=== PATIENT | female | born 1955 | race Caucasian/White ===

== ENCOUNTER 2016-08-28 08:35 | Day surgery (SDC) | payer MEDICARE, MEDICAID ==
[~2016-08-28] VITALS: Ht 170.2 cm; Wt 101.0 kg
[~2016-08-28 08:35] MED LIST: 0.9% Sodium Chloride 1,000 ML IV SCH; AMLO10TA5 PO; BIOT1TAB16 PO; BUPR150T12 PO; DULO60CA42 PO; ESTR1PAT81 TRANSDERM; FENT-2 TRANSDERM; HYDR25TA4 PO; LEVO125T6 PO; MELA1TAB16 PO; MULT-1018 PO; OMEG1CAP56 PO; OMEP40CA36 PO; PROM25TA14 PO; RAMI10CA PO; RES15 PO; SULF500T PO; Sodium Chloride LOK Flush 10 mL Syringe IV PRN; TIZA4TAB4 PO; VIT1TABL83 PO; VITA400T9 PO; fentaNYL-PF 50 mCg/mL 2 mL Inj IVPUSH PRN; iron PO; potassium PO
[2016-08-28 09:22] VITALS: BP 168/96; PULSE 107; RESP 16; O2SAT 98
[2016-08-28] MEDS ORDERED: PANT40TA3 PO (09:29)
[2016-08-28] MEDS ORDERED: NITR1PAT64 TRANSDERM (09:29)
[2016-08-28] MEDS ORDERED: ATEN100T PO (09:29)
[2016-08-28] MEDS ORDERED: MORPHINE ER PO (09:29)
[2016-08-28] MEDS ORDERED: IMI100 PO (09:29)
[2016-08-28] MEDS ORDERED: ZOLP10TA5 PO (09:29)
[2016-08-28 10:26] VITALS: BP 146/78; PULSE 98; RESP 16; O2SAT 98
[2016-08-28 10:40] VITALS: BP 156/81; PULSE 101; RESP 14; O2SAT 96
--- NOTE | 2016-08-28 14:34 | ENDO ---
[address] [address] ENDOSCOPY PROCEDURE PATIENT: ROEL DIANE V : 1955 MR#: [id number] ADMIT: 08/28/2016 JOB ID: [id number] DATE OF SERVICE: 08/28/2016 FIRST PROCEDURE PERFORMED: Esophagogastroduodenoscopy. INDICATION: Epigastric pain and diarrhea. ASA CLASSIFICATION: The patient's ASA classification is II. MALLAMPATI SCORE: Mallampati score is 2. MEDICATIONS: Please see nurse's notes for details regarding sedation INSTRUMENT USED: GIF-H180J. PROCEDURE DETAILS: After informed consent was obtained, the patient was brought into the GI suite, where she was placed on oxygen via nasal cannula and monitored with continuous pulse oximeter, telemetry, and blood pressure monitoring. A time-out was performed. Then, she was placed in the left lateral decubitus position, and a bite block was placed. Medications were then administered for sedation. The standard EGD scope was then inserted through the bite block and advanced under direct visualization to the second portion of the duodenum without difficulty. FINDINGS: 1. Normal appearing duodenal bulb, first and second portions. Multiple random biopsies were obtained. 2. Normal appearing pylorus, antrum and gastric body. 3. Retroflexed views in the gastric body revealed a small hiatal hernia but otherwise normal exam. Multiple random biopsies were obtained throughout the antrum and body of the stomach. 4. The diaphragmatic hiatus was at approximately 39 cm and at 38 cm was the squamocolumnar junction. There was a short tongue of salmon-colored mucosa arising from the GE junction. A single biopsy was obtained. The remainder of the esophageal exam was otherwise unremarkable. IMPRESSION: 1. Small hiatal hernia. 2. Irregular gastroesophageal junction. RECOMMENDATIONS: 1. Await biopsy results. 2. Continue PPI. 3. Proceed to colonoscopy. COMPLICATIONS: None. ESTIMATED BLOOD LOSS: Less than 5 mL. SECOND PROCEDURE PERFORMED: Colonoscopy. INDICATION: Diarrhea. ASA CLASSIFICATION, MALLAMPATI SCORE AND MEDICATIONS: Please see above for ASA classification, Mallampati score and medications. INSTRUMENT USED: [id number]. PREPARATION QUALITY: Good. PROCEDURE DETAILS: After completion of the EGD exam, the patient was turned and then a digital rectal exam was performed which was unremarkable. A colonoscope was then inserted into the rectum and advanced under direct visualization to the terminal ileum, which was identified by the presence of the ileocecal valve and villous appearing mucosa of the terminal ileum. Once the terminal ileum was reached, the colonoscope was withdrawn back into the rectum as the mucosa and lumen were examined. In the rectum, retroflexion was performed. Following retroflexion, remaining air in the rectum was suctioned, and procedure was completed. FINDINGS: 1. Normal appearing terminal ileum. Multiple random biopsies were obtained. 2. In the transverse colon and sigmoid colon there was evidence of a previously placed tattoo. The mucosa proximal to and distal to each tattoo was examined. There was no evidence of any mucosal abnormality noted. 3. The remainder of the colon exam was normal. Multiple random biopsies were obtained throughout the entire colon. IMPRESSION: 1. Normal exam from rectum to terminal ileum. 2. Previously placed tattoo in the transverse colon and sigmoid colon. RECOMMENDATIONS: 1. Await biopsy results. 2. Follow up in GI clinic. COMPLICATIONS: None. ESTIMATED BLOOD LOSS: Less than 5 mL. MTDD
--- NOTE | 2016-08-29 10:48 | PATH ---
SURGICAL PATHOLOGY Attending Physician:Doroteo Beavers CASE STATUS: Signed Out PATIENT NAME: ROEL DIANE V. PID: [id number] : 1955 DATE COLLECTED:08/28/2016 16:47 SPECIMEN: 1: Duodenum, Biopsy 2: Gastric, Biopsy 3: Esophagus, Biopsy 4: Small Intestine/Bowel, Biopsy 5: Colon, Biopsy CLINICAL HISTORY: 1. DUODENUM BIOPSY 2. GASTRIC BIOPSY R/O H.PYLORI 3. DISTAL ESOPHAGUS BIOPSY 4. TERMINAL ILEUM BIOPSY 5. RANDOM COLON BIOPSY FINAL DIAGNOSIS: 1.DUODENUM BIOPSY: DUODENAL MUCOSA WITH NO DIAGNOSTIC ALTERATIONS. Negative for inflammation, sprue, dysplasia and malignancy. 2.GASTRIC BIOPSY: GASTRIC ANTRAL AND BODY-TYPE MUCOSA WITH NO DIAGNOSTIC ALTERATIONS. Negative for Helicobacter organisms on H&E stains. Negative for intestinal metaplasia. Negative for dysplasia and malignancy. 3.DISTAL ESOPHAGUS BIOPSY: SQUAMOCOLUMNAR MUCOSA WITH FOCAL ACTIVE INFLAMMATION, MINIMAL. Negative for intestinal metaplasia. Negative for dysplasia and malignancy. 4.TERMINAL ILEUM BIOPSY: ILEAL MUCOSA WITH NO DIAGNOSTIC ALTERATIONS. Negative for inflammation, granulomas, dysplasia and malignancy. 5.RANDOM COLON BIOPSY: COLONIC MUCOSA WITH NO DIAGNOSTIC ALTERATIONS. Negative for inflammation, dysplasia and malignancy. [id number] GROSS DESCRIPTION: The specimen is received in five formalin filled containers labeled with the patient's name. 1). The specimen is labeled "duodenum" and consists of multiple portions of tissue which aggregate to 03 x 0.3 x 0.2 CM. The specimen is entirely submitted in cassette 1A. 2). The specimen is labeled "gastric" and consists of multiple portions of tissue which aggregate to 0.5 x 0.5 x 0.2 CM. The specimen is entirely submitted in cassette 2A. 3). The specimen is labeled "distal esophagus" and consists of 2 portions of tissue which aggregate to 0.2 x 0.2 x 0.2 CM. The specimen is entirely submitted in cassette 3A. 4). The specimen is labeled "terminal ileum" and consists of a 0.3 x 0.3 x 0.2 CM portion of tissue which is entirely submitted in cassette 4A. 5). The specimen is labeled "random colon" and consists of multiple portions of tissue which aggregate to 0.6 x 0.6 x 0.2 CM. The specimen is entirely submitted in cassette 5A. 08/28/2016AL MICRO DESCRIPTION: See diagnosis. ICD-9 CODES: CPT CODES: 1: 56356 2: 24906 3: 73269 4: 01268 5: 02793 Electronically Signed Out Carolann Bravo MD [facility] [address], [place] [address] Technical component performed at [facility], [address], [place], [address]
== END 2016-08-28 23:59 | disposition home or self-care (01) ==
LOC: END 08:35
PROVIDERS: ATTEND Internal Medicine Gastroenterology
DX: R19.7 Diarrhea, unspecified (principal); R10.13 Epigastric pain; K44.9 Diaphragmatic hernia without obstruction or gangrene; K21.9 Gastro-esophageal reflux disease without esophagitis
CPT/HCPCS: 43239; 45380; 99153; G0500; J2250; J3010; J7030